=== PATIENT | female | born 1980 | race Caucasian/White ===

== ENCOUNTER 2018-10-25 19:34 | Emergency (ER) | payer SELFPAY ==
[~2018-10-25] VITALS: Ht 170.2 cm; Wt 79.4 kg
[2018-10-25 19:56] VITALS: BP_SYST 126
[2018-10-25] MEDS ORDERED: DIAZEPAM 10 MG/2 ML DISP.SYRIN IM ONE (20:30)
[2018-10-25] MEDS: KETOROLAC TROMETHAMINE 60 MG/2 ML VIAL IM ONE (20:36)
[2018-10-25] MEDS: LORazepam 2 MG/ML VIAL (FOR ER USE) IM ONE (20:55)
[2018-10-25 21:16] VITALS: BP_SYST 131
== END 2018-10-25 21:16 | disposition home or self-care (01) ==
LOC: SED 19:34
DX: S16.1XXA Strain of muscle, fascia and tendon at neck level, initial encounter (principal); R03.0 Elevated blood-pressure reading, without diagnosis of hypertension; V43.52XA Car driver injured in collision with other type car in traffic accident, initial encounter; Y93.89 Activity, other specified; Y92.410 Unspecified street and highway as the place of occurrence of the external cause; Y99.8 Other external cause status
CPT/HCPCS: 81025; 96372; 99283; J1885; J2060

== ENCOUNTER 2019-05-16 16:30 | Emergency (ER) | payer OTHER ==
[~2019-05-16] VITALS: Ht 167.6 cm; Wt 81.6 kg
[2019-05-16 16:36] VITALS: BP_SYST 112
--- NOTE | 2019-05-16 17:12 | NUR ---
BROUGHT BACK TO BED #7 AND REPORT GIVEN TO TIMBO
[2019-05-16 17:17] LABS: BASOPHILS % (AUTO) 0.4 % (0.0-2.0); EOSINOPHILS # (AUTO) 0.1 K/uL (0.0-0.4); LYMPHOCYTES # (AUTO) 0.7 K/uL (1.0-5.5); MEAN CORPUSCULAR HEMOGLOBIN 27 pg (27-31); MEAN CORPUSCULAR HGB CONC 33 % (32-36); MEAN CORPUSCULAR VOLUME 82 fL (79.0-98.0); NEUTROPHILS # (AUTO) 4.8 K/uL (1.8-7.7); NEUTROPHILS % (AUTO) 72.6 % (40.0-70.0); PLATELET COUNT (AUTO) 301 K/uL (130-430); RED BLOOD CELL COUNT(AUTO) 5.26 MIL/uL (4.2-6.2); RED CELL DISTRIBUTION WIDTH 16.7 % (9.0-15.0); WHITE BLOOD COUNT (AUTO) 6.6 K/uL (4.8-10.8)
[2019-05-16 17:18] LABS: CALCIUM 9.2 mg/dL (8.4-11.0); CREATININE 0.93 mg/dL (0.55-1.30); POTASSIUM 3.7 mmol/L (3.5-5.1)
--- NOTE | 2019-05-16 17:18 | NUR ---
PATIENT BROUGHT IN WITH SON COMPLAINING OF GRAUAL ONSET DIFFUSE ABDOMINAL PAIN WITH NAUSEA, VOMITING, DIARRHEA AND CHILLS SINCE LAST NIGHT. REPORTS CRAMPING PAIN PAIN 7/10. NO OTHER COMPLAINTS/INJURIES PER PATIENT OR NOTED. WILL CONTINUE TO MONITOR.
[2019-05-16 17:22] LABS: TOTAL BILIRUBIN 0.2 mg/dL (0.0-1.0)
[2019-05-16] MEDS ORDERED: MORPHINE 4 MG/ML INJ. SYRINGE IVP ONE (18:00)
[2019-05-16] MEDS ORDERED: NACL 0.9% 1,000 ML IV ONE (18:00)
--- NOTE | 2019-05-16 18:02 | NUR ---
ER at bedside examining patient.
[2019-05-16] MEDS ORDERED: ONDANSETRON HCL 4 MG/2 ML VIAL IVP ONE (18:15)
--- NOTE | 2019-05-16 18:17 | NUR ---
# 20 gauge angiocath placed to RAC. Use of asceptic technique. Opsite placed over site. Blood return noted. Blood for lab drawn from site. Flushed with 10 cc of normal saline. No evidence of infiltration noted. Patient tolerated well.
--- NOTE | 2019-05-16 20:07 | NUR ---
ER at bedside re-examining patient.
[2019-05-16 20:23] VITALS: BP_SYST 118
--- NOTE | 2019-05-16 20:23 | NUR ---
Patient given written and verbal discharge instructions and verbalizes understanding. ER MD Conklin discussed with patient the results and treatment provided. Patient in stable condition. ID arm band removed. IV catheter removed intact and dressing applied, no active bleeding. Rx of Tylenol No. 3 given. Patient educated on pain management and to follow up with PMD in 2-3 days. Pain Scale 0/10 Opportunity for questions provided and answered. Medication side effect fact sheet provided.
== END 2019-05-16 20:23 | disposition home or self-care (01) ==
LOC: SED 16:30
DX: R10.9 Unspecified abdominal pain (principal); R19.7 Diarrhea, unspecified; R11.10 Vomiting, unspecified
CPT/HCPCS: 36415; 80053; 83690; 85025; 96361; 96374; 96375; 99283; J2270; J2405; J7030; 81025; 96372

== ENCOUNTER 2019-11-01 22:03 | Emergency (ER) | payer SELFPAY ==
[~2019-11-01] VITALS: Ht 170.2 cm; Wt 79.4 kg
[2019-11-01 22:06] VITALS: BP_SYST 129
--- NOTE | 2019-11-01 23:39 | NUR ---
pl Patient to ER bed 2 to gown for evaluation. Side rails up.
--- NOTE | 2019-11-02 00:02 | NUR ---
Pt A&Ox4. Pt presents to ER with c/o sadness and anxiety. Pt states her 1.5 years ago. Pt states since her , she cries for days and is unable to get out of bed. Pt states she talks to marriage counselor once a week to help with the pain of the loss and the counselor suggested to get medication to help cope with the distress of losing her . Patient states "I am just so stressed that I can't go to work because I just cry all the time and can't get out of bed." No SI. No HI noted.
--- NOTE | 2019-11-02 00:18 | NUR ---
ER Dr. Harper at bedside examining patient.
[2019-11-02 00:47] VITALS: BP_SYST 120
--- NOTE | 2019-11-02 00:47 | NUR ---
Patient given written and verbal discharge instructions and verbalizes understanding. ER MD Harper discussed with patient the results and treatment provided. Patient in stable condition. ID arm band removed. Rx of Ativan given. Patient educated on pain management and to follow up with PMD. Pain Scale 0/10. Opportunity for questions provided and answered. Medication side effect fact sheet provided.
== END 2019-11-02 00:47 | disposition home or self-care (01) ==
LOC: SED 22:03
DX: F41.1 Generalized anxiety disorder (principal)
CPT/HCPCS: 99283

== ENCOUNTER 2019-11-25 12:56 | Emergency (ER) | payer MEDICAID ==
[~2019-11-25] VITALS: Ht 170.2 cm; Wt 86.2 kg
[2019-11-25 13:38] VITALS: BP_SYST 131
--- NOTE | 2019-11-25 13:42 | NUR ---
Patient triaged and placed in waiting room. VSS and patient appears in no acute distress at this time. Accompanied by self, awaiting available bed, and MD notified of need for MSE.
--- NOTE | 2019-11-25 13:45 | NUR ---
Pt AAOx4 ambulated into ED c/o R shoulder pain x 2 days. Pt denies trauma. Pain increases upon movement. No deformities noted. Pt refusing xrays and requests to have note for work for healing time. No other injuries/complaints per pt/noted. Will continue to monitor.
--- NOTE | 2019-11-25 14:48 | NUR ---
ER Dr. Gao at bedside examining patient.
--- NOTE | 2019-11-25 14:50 | NUR ---
Patient to ER H2 for evaluation. Side rails up.
[2019-11-25] MEDS ORDERED: NAPROXEN 250 MG TABLET PO SCH (15:00)
[2019-11-25] MEDS ORDERED: NAPROXEN 250 MG TABLET PO ONE (15:00)
--- NOTE | 2019-11-25 15:10 | NUR ---
Patient refuses sling. aware.
[2019-11-25 15:15] VITALS: BP_SYST 131
--- NOTE | 2019-11-25 15:15 | NUR ---
Patient given written and verbal discharge instructions and verbalizes understanding. ER MD discussed with patient the results and treatment provided. Patient in stable condition. ID arm band removed. IV catheter removed intact and dressing applied, no active bleeding. Rx of Naprosyn given. Patient educated on pain management and to follow up with PMD. Pain Scale 0. Opportunity for questions provided and answered. Medication side effect fact sheet provided.
== END 2019-11-25 18:29 | disposition home or self-care (01) ==
LOC: SED 12:56
DX: G58.8 Other specified mononeuropathies (principal); M25.511 Pain in right shoulder; Z90.49 Acquired absence of other specified parts of digestive tract
CPT/HCPCS: 99282

== ENCOUNTER 2019-12-22 08:26 | Emergency (ER) | payer MEDICAID ==
[~2019-12-22] VITALS: Ht 170.2 cm; Wt 83.9 kg
[2019-12-22 08:26] VITALS: BP_SYST 119
--- NOTE | 2019-12-22 08:26 | NUR ---
BROUGHT BACK TO BED #6 VIA WHEELCHAIR, PLACED IN BED AND TRIAGED. REPORT GIVEN TO CECELIA
--- NOTE | 2019-12-22 08:32 | NUR ---
MARLYS Quick at bedside examining patient.
--- NOTE | 2019-12-22 08:52 | NUR ---
X-ray tech at bedside as ordered by Dr. Quick. Patient tolerated the procedure well.
--- NOTE | 2019-12-22 09:08 | NUR ---
ER Dr. Quick at bedside giving discharge instructions to the patient.
--- NOTE | 2019-12-22 09:26 | NUR ---
Administered Toradol IM as ordered by Dr. Quick. Patient tolerated the medication well. See eMAR for details.
--- NOTE | 2019-12-22 09:28 | NUR ---
Patient given written and verbal discharge instructions and verbalizes understanding. ER MD discussed with patient the results and treatment provided. Patient in stable condition. ID arm band removed. Rx of given. Patient educated on pain management and to follow up with PMD. Pain Scale 3/10. Opportunity for questions provided and answered. Medication side effect fact sheet provided. Patient refused to sign the discharge instructions and crutches form. Wants a stronger medication than Ibuprofen. MD aware and refused to give her narcotics. Addendum: 12/22/19 at 1513 by [email or web address] Patient given written and verbal discharge instructions and verbalizes understanding. ER discussed with patient the results and treatment provided. Patient in stable condition. ID arm band removed. Rx of given. Patient educated on pain management and to follow up with PMD. Pain Scale 3/10. Opportunity for questions provided and answered. Medication side effect fact sheet provided. Patient refused to sign the discharge instructions and crutches form. Wants a stronger medication than Ibuprofen. MD aware and refused to give her narcotics. Patient refused to take the discharge instructions and prescription for Ibuprofen. She stated, "I don't want any of your crap".
[2019-12-22 09:29] VITALS: BP_SYST 119
[2019-12-22] MEDS ORDERED: KETOROLAC TROMETHAMINE 30 MG VIAL IM ONE (09:30)
== END 2019-12-22 09:28 | disposition home or self-care (01) ==
LOC: SED 08:26
DX: M25.562 Pain in left knee (principal)
CPT/HCPCS: 73564; 96372; 99283